=== PATIENT | male | born 1990 | race Caucasian/White ===

== ENCOUNTER 2018-10-11 14:37 | Emergency (ER) | payer BC, MEDICAID ==
[2018-10-11] MEDS: KETOROLAC 60 MG INJ IM (17:01)
[2018-10-11] MEDS: CYCLOBENZAPRINE 10 MG TAB PO (17:01)
[2018-10-11] MEDS: DEXAMETHASONE 10 MG/ML 1 ML INJ IM (17:18)
[2018-10-11] MEDS: METHYLPREDNISOLONE ACET 80 MG/ML 1 ML IM (17:18)
[2018-10-11] MEDS: HYDROCODONE/APAP (10/325) TAB PO (18:18)
== END 2018-10-11 19:10 | disposition home or self-care (01) ==
LOC: FTE 19:10
DX: M54.9 Dorsalgia, unspecified (principal)
CPT/HCPCS: 72100; 96372; 99284-25